=== PATIENT | female | born 1995 | race Two or more races ===

== ENCOUNTER 2020-04-17 05:36 | Inpatient (IN) | payer OTHER ==
[~2020-04-17] VITALS: Ht 165.1 cm; Wt 83.0 kg
[2020-04-17] VITALS (13 sets, daily range): BP systolic 108–135; BP diastolic 58–76
[2020-04-17] MEDS ORDERED: Vancomycin 1gm vial IVPB ONE (06:37)
[2020-04-17] MEDS ORDERED: Ropivacaine 5mg/ml Vial 30ml INJ ONE (06:38)
[2020-04-17] MEDS ORDERED: Gelfoam Size TOPIC ONE (06:38)
[2020-04-17] MEDS ORDERED: Bacitracin 50000 Units Vial ONE (06:38)
[2020-04-17] MEDS ORDERED: Thrombin 5000 units TOPIC ONE (06:38)
[2020-04-17] MEDS ORDERED: Lidocaine 1% MPF 10mg/ml 5ml ONE (06:40)
[2020-04-17] MEDS ORDERED: Sodium Chloride 10ml vial INJ ONE (06:40)
[2020-04-17] MEDS ORDERED: fentaNYL 100 mcg/2 mL IV ONE (06:42)
[2020-04-17] MEDS ORDERED: LORazepam Inj 2mg/ml 1ml IV PRN (06:45)
[2020-04-17] MEDS ORDERED: Hydromorphone 0.5mg/0.5ml inj IVP PRN (06:45)
[2020-04-17] MEDS ORDERED: Atropine Sulfate 0.4mg/ml inj IVP PRN (06:45)
[2020-04-17] MEDS ORDERED: Meperidine 25mg/1ml Inj (FOR RIGORS ONLY) IV PRN (06:45)
[2020-04-17] MEDS ORDERED: oxyCODONE HCL/Acetaminophen 5/325mg ORAL PRN (06:45)
[2020-04-17] MEDS ORDERED: LR 1000ml 1,000 ML IVLG SCH (06:45)
[2020-04-17] MEDS ORDERED: Metoclopramide 10mg/2ml Inj IVP PRN ×2 (06:45→07:15)
[2020-04-17] MEDS ORDERED: Midazolam 2mg/2ml Inj IVP PRN (06:45)
[2020-04-17] MEDS ORDERED: Labetalol 5mg/ml 20ml vial IV PRN (06:45)
[2020-04-17] MEDS ORDERED: Acetaminophen (Non formulary) 100 ML IV ONE (06:45)
[2020-04-17] MEDS ORDERED: HYDROcodone/Acetamin 7.5/325 tab ORAL PRN ×2 (06:45→07:15)
[2020-04-17] MEDS ORDERED: fentaNYL 100 mcg/2 mL IV PRN (06:45)
[2020-04-17] MEDS ORDERED: Ketorolac 30mg Inj IV PRN ×2 (06:45)
[2020-04-17] MEDS ORDERED: HYDROcodone/Acetamin 5/325 tab ORAL PRN ×2 (06:45→07:15)
[2020-04-17] MEDS ORDERED: DiphenhydrAMINE 50mg/ml Inj IVP PRN (06:45)
--- NOTE | 2020-04-17 06:45 | Anethesia Preoperative Eval ---
Anesthesia Pre-op PMH/ROS General Date of Evaluation: Apr 17, 2020 Time of Evaluation: 06:49 Anesthesiologist: Mindi ASA Score: ASA 1 Mallampati Score Class I : Soft palate, uvula, fauces, pillars visible Class II: Soft palate, uvula, fauces visible Class III: Soft palate, base of uvula visible Class IV: Only hard plate visible Mallampati Classification: Class I Surgeon: Elliott Diagnosis: Back Pain Surgical Procedure: L5-S1 Microdiscetomy Anesthesia History: none Family History: no anesthesia problems Allergies: Coded Allergies: No Known Allergies (Unverified , 04/17/20) Medications: see eMAR Patient NPO?: Yes Past Medical History Other: obesity - BMI 32 Anesthesia Pre-op Phys. Exam Physician Exam Last Vital Signs Date Time Temp Pulse Resp B/P (MAP) Pulse Ox O2 Delivery O2 Flow Rate FiO2 04/17/20 06:11 97.2 81 16 135/72 (93) 98 04/17/20 06:11 Room Air Constitutional: NAD Neurologic: CN 2-12 intact Cardiovascular: RRR Respiratory: CTA Gastrointestinal: S/NT/ND Airway Exam Mallampati Score: Class I MO: full ROM: full Teeth: intact Anesthesia Pre-op A/P Labs Urine Test Test 04/17/20 05:50 Urine HCG, Qualitative Negative (NEGATIVE) Risk Assessment & Plan Assessment: ASA 1 Plan: GA, SED, GlideScope Status Change Before Surgery: No Pre-Antibiotics Dru Grams Ancef IV Given Within 1 Hr of Incision: Yes Time Given: 07:16 Mitchel Obregon MD Apr 17, 2020 06:45
--- NOTE | 2020-04-17 06:52 | Immediate Post-Op Evaluation ---
Immediate Post-Op Evalulation Immediate Post-Op Evalulation Procedure: L5-S1 Microdiscetomy Date of Evaluation: Apr 17, 2020 Time of Evaluation: 09:15 IV Fluids: 900 LR Blood Products: 0 Estimated Blood Loss: 25 Urinary Output: 900 Blood Pressure Systolic: 108 Blood Pressure Diastolic: 58 Pulse Rate: 76 Respiratory Rate: 16 O2 Sat by Pulse Oximetry: 87 Temperature (Fahrenheit): 98.2 Pain Score (1-10): 2 Nausea: No Vomiting: No Complications 0 Patient Status: awake, reacts, patent, extubated, none Hydration Status: adequate Dru Grams Ancef IV Given Within 1 Hr of Incision: Yes Time Given: 07:16 Mitchel Obregon MD Apr 17, 2020 06:52
--- NOTE | 2020-04-17 06:53 | 48 Hour Post Anesthesia Eval ---
Post Anesthesia Evaluation Procedure: L5-S1 Microdiscetomy Date of Evaluation: Apr 17, 2020 Time of Evaluation: 11:34 Blood Pressure Systolic: 112 0: 62 Pulse Rate: 89 Respiratory Rate: 18 Temperature (Fahrenheit): 98.3 O2 Sat by Pulse Oximetry: 97 Airway: patent Nausea: No Vomiting: No Pain Intensity: 2 Hydration Status: adequate Cardiopulmonary Status: Stable Mental Status/LOC: patient returned to baseline Follow-up Care/Observations: 0 Post-Anesthesia Complications: 0 Follow-up care needed: ready to discharge Mitchel Obregon MD Apr 17, 2020 06:53
[2020-04-17] MEDS ORDERED: Rocuronium Bromide 50mg/5ml Inj IV ONE (06:56)
[2020-04-17] MEDS ORDERED: NS Irrig 1000ml ONE (07:00)
[2020-04-17] MEDS ORDERED: Sterile Water Irrig 1000ml IRRIG ONE (07:00)
[2020-04-17] MEDS ORDERED: Neostigmine 1mg/ml 10ml Inj ONE (07:00)
[2020-04-17] MEDS ORDERED: LR 1000ml ONE (07:00)
[2020-04-17] MEDS ORDERED: ceFAZolin sod 2 GM in NS 55 ML IVPB ONE (07:00)
[2020-04-17] MEDS ORDERED: propofoL 1,000mg/100ml IV ONE (07:00)
--- NOTE | 2020-04-17 07:10 | Pre-Procedure Note/Attestation ---
Pre-Procedure Note/Attestation Complete Prior to Procedure Planned Procedure: right Procedure Narrative: Right sided hemilaminotomy foraminotomy microdiscectomy Indications for Procedure Pre-Operative Diagnosis: Right sided L5S1 herniation Attestation I attest that I discussed the nature of the procedure; its benefits; risks and complications; and alternatives (and the risks and benefits of such alternatives), prior to the procedure, with the patient (or the patient's legal liability claims representative). I attest that, if there was a reasonable possibility of needing a blood transfusion, the patient (or the patient's legal liability claims representative) was given the [facility] standardized written summary, pursuant to the [place] Blood Safety Act ([place] Health and Safety Code # 1645, as amended). I attest that I re-evaluated the patient just prior to the surgery and that there has been no change in the patient's H&P, except as documented below: Ja Gallagher MD Apr 17, 2020 07:10
--- NOTE | 2020-04-17 07:11 | Brief Operative Note ---
Immediate Post Operative Note Operative Note Chief Complaint: back pain and radiculopathy Pre-op Diagnosis: Right sided L5S1 herniation Procedure: Right sided hemilaminotomy foraminotomy microdiscectomy Post-op Diagnosis: same as pre-op Findings: consistent w/pre-op dx studies Surgeon: Elliott Administrative Personal Assistant: Fredo Anesthesiologist: Mindi Anesthesia: general Specimen: none Complications: none Condition: stable Fluids: IVF Estimated Blood Loss: minimal Drains: none Implant(s) used?: No Ja Gallagher MD Apr 17, 2020 07:11
[2020-04-17] MEDS ORDERED: Naloxone 0.4mg/ml Inj IVP PRN (07:15)
[2020-04-17] MEDS ORDERED: Morphine Sulfate 4mg/ml Inj (IV USE ONLY) IV PRN ×2 (07:15)
[2020-04-17] MEDS ORDERED: Chloraseptic Spray 20mL Bottle ORAL PRN (07:15)
[2020-04-17] MEDS ORDERED: Milk of Magnesia 30ml Ud ORAL PRN (07:15)
[2020-04-17] MEDS ORDERED: HYDROmorphone 1mg/ml Carpuject IVP PRN (07:15)
[2020-04-17] MEDS ORDERED: Morphine Sulfate 2mg/ml Inj(IV/IM USE ONLY) IV PRN (07:15)
[2020-04-17] MEDS ORDERED: Glycopyrrolate 0.2mg/ml 1ml Vial ONE (08:32)
--- NOTE | 2020-04-17 10:35 | NUR ---
NURSE NOTES:Received patient from recovery,patient eyes closed,awake and talkative when name called.Dressing to the lower back clean and ice back applied to the area.Patient able to move lower extremities,feet warm to touch.Pulses Palpable.SCDs are on.IV fluids infusing.Bed alarm on,call light within reach.
--- NOTE | 2020-04-17 12:02 | Diagnostic Imaging Report ---
CLINICAL HISTORY: Reason For Exam: PAIN. Back pain. Intraoperative fluoroscopic imaging from spinal surgery COMPARISON: None FINDINGS: Fluoroscopy independent procedure performed for spinal surgery. 2.4 seconds of fluoroscopy time utilized by the ordering physician. Total cumulative dose is 0.78 mGy. Total of 3 spot images are obtained demonstrating surgical instruments projecting posterior to the lumbar sacral spine at the presumed level of L5-S1 (note that the possibility of transitional lumbosacral anatomy cannot be assessed given the limited imaging). IMPRESSION: FLUOROSCOPY GUIDED PROCEDURE.
[2020-04-17] MEDS: NS w/KCl 20mEq 1000ml 1,000 ML IV SCH ×2 (12:55→23:03)
--- NOTE | 2020-04-17 13:55 | NUR ---
PT EVALUATION NOTE Patient seen for initial evaluation and treatment initiated. Patient presents with pain and impaired functional mobility s/p lumbar spine surgery. Patient instructed in back precautions and in log roll technique for in/OOB. Patient required CGA/min assist for bed mobility and transfers without AD. Patient able to ambulate 80 ft with CGA, no AD. Patient will benefit from skilled inpatient PT intervention to increase strength and postural stability for improved level of functional mobility and to ensure compliance with back precautions. Stair training will be done as patient lives in a second floor apartment without elevator access. Anticipate discharge home once medically cleared by MD. Recommend raised toilet seat for home use. Addendum: 04/17/20 at 1431 by DOMINIK SPICER PT Amended: Links added.
[2020-04-17] MEDS: ceFAZolin sod 1 GM in D5W 55 ML IV SCH ×2 (15:23→23:03)
[2020-04-17] MEDS: HYDROcodone/Acetamin 7.5/325 tab ORAL PRN ×2 (15:32→23:04)
--- NOTE | 2020-04-17 18:00 | NUR ---
NURSE NOTES: Patient resting,tolerated diet.Surgical dressing to lower back remains clean,dry intact.IV fluids continue to infuse as ordered.Call light within reach.
[2020-04-17] MEDS: Docusate 100mg cap ORAL SCH (18:46)
--- NOTE | 2020-04-17 19:25 | NUR ---
NURSE HAND-OFF: Tomer HAWTHORNE Important Events on Shift:[ Post- op Patient Status: mo apparent distress] Diet: Regular Pending Orders: [NA] Pending Results/Labs:[NA] Pending MD notification:[NA] Latest Vital Signs: Temperature 99.0 , Pulse 85 , B/P 121 /67 , Respiratory Rate 18 , O2 SAT 98 , Nasal Cannula, O2 Flow Rate 3 . Vital Sign Comment: [Q4] Latest Burns Fall Score: 60 Fall Risk: High Risk Safety Measures: Call light , Bed Alarm , Side Rails Side Rails x1, Bed position . Fall Precautions: Report given to [].
--- NOTE | 2020-04-17 19:45 | NUR ---
NURSE NOTES: Received report from Anahy HAWTHORNE. Patient is awake, alert and oriented x4. On NC 2L, breathing is even and unlabored. Complains of back pain 7 out of 10. Will administer pain meds. Dressing on lower back intact and clean with no drainage noted. IV left hand intact and patent with no bleeding noted. IVF running as ordered. Bed low and locked. Call light within reach.
--- NOTE | 2020-04-17 22:29 | Operative Note - Dictated ---
DATE OF OPERATION: 04/17/2020 SURGEON: Ja Gallagher MD DUPLICATE MAKER SURGEON: Cedric Yoo MD ANESTHESIA: General endotracheal anesthesia. PREOPERATIVE DIAGNOSES: 1. Intractable back pain. 2. Intractable leg pain. 3. Worsening radiculopathy. 4. Weakness. 5. Herniated nucleus pulposus, L5-S1 herniation. 6. Neural foraminal stenosis, L5-S1. POSTOPERATIVE DIAGNOSES: 1. Intractable back pain. 2. Intractable leg pain. 3. Worsening radiculopathy. 4. Weakness. 5. Herniated nucleus pulposus, L5-S1 herniation. 6. Neural foraminal stenosis, L5-S1. PROCEDURES PERFORMED: 1. Right-sided L5-S1 microdiscectomy. 2. L5-S1 hemilaminotomy, foraminotomy and medial facetectomy. 3. L5 and S1 neural foraminotomy 4. Use of intraoperative microscope. 5. Supervision and interpretation of intraoperative fluoroscopy. 6. Supervision and interpretation of somatosensory-evoked potential and free running EMG monitoring. EBL: Less than 100 mL. COMPLICATIONS: None. INDICATIONS FOR THE PROCEDURE: The patient presents for intractable back pain and radiculopathy. The patient tried and failed a prolonged course of conservative management, including but not limited to chiropractic therapy, physical therapy, nonsteroidal anti-inflammatory drugs, medication, ice packs as well as epidural injection. Despite these therapies, the patient still developed recalcitrant pain and elected for definitive management in the form of right-sided L5-S1 microdiscectomy, L5-S1 hemilaminotomy, foraminotomy and medial facetectomy, L5-S1 neural foraminotomy through a transpedicular intraforaminal approach. CONSENT: We had a long discussion with the patient regarding definitive surgical treatment options. The patient's MRI demonstrated herniated nucleus pulposus, L5-S1 herniation, neural foraminal stenosis, L5-S1, and as a result, I felt the patient would benefit from the discectomy as well as neural foraminotomy at this level. We had a long discussion with the patient regarding the risks, alternatives, and benefits of surgery. Our description of the risks included a discussion in person as well as a signed consent which detailed all pertinent risks and the procedure itself. Briefly, our discussion included but was not limited to infection, bleeding, pseudarthrosis, spinal cord injury, neurovascular injury, dural tear, CSF leak, neuropathy, paralysis, permanent weakness/drop foot, paresthesias blindness, palsy and weakness. The patient understood there may be a need for revision surgery or additional procedures. Approach related complications including dysphonia, dysphagia, blindness, permanent vocal cord and neural injury, hematoma, swallowing and breathing difficulty. Medical complications including liver, kidney, shock, and cardiopulmonary failure. Anesthesia complications including , swelling. Damage to the musculature, larynx (voice injury or loss),esophagus (throat), trachea, blood vessels and muscles (muscular sprain) and lungs (pneumothorax) during this surgical procedure. Injury to deeper structures may be temporary or permanent. The patient understood these and elected to proceed. A written and verbal consent was given. We discussed the pros and cons of all the alternatives. We discussed the uncertainties associated with the decision. Afterwards I assessed the patients understanding and explored their preferences. All questions were answered and no guarantees were given. Medical clearance was obtained prior to surgery INTRAOPERATIVE FINDINGS: At L5-S1: I noticed the disc to be more collapsed and apparent on the MRI. There was a tear noted along the lateral margin into the foramina of the posterior longitudinal ligament. This was probed with a Microsect 1B curette. The torn edges appeared fresh knots and appeared to be chronic. These edges were probed with Microsect 1B. The tear was approximately 10 degrees inline with the fibers of the posterior longitudinal ligament cephalad to caudad 10 degrees. The edges of the tear were probed freeing the underlying nucleus pulposus. This was resected with a combination of pea pods, arthroscopic pituitaries, and a Mercedes pituitary until resection of all free residual fragment was performed. Afterwards, the disc space was copiously irrigated and all residual fragment was removed as well. There was a foraminal stenosis. As such, a foraminotomy of S1 and the L5 was performed afterwards. DESCRIPTION OF PROCEDURE: Under the benefit of general endotracheal anesthesia and with the assistance of the entire operative team, the patient was moved from the rney onto the operative table in the prone position on a Emmanuel frame. The head was secured and positioned appropriately. Bilateral arms were secured with Gel pads and foam and all bony prominences were padded. The bilateral lower extremity SCD and DEBBIE hose were placed for DVT prophylaxis. A surgical timeout was called which corroborated our planned procedure. Preoperative Antibiotics were administered within 30 minutes of the incision for prophylaxis. Decadron was given for preoperative steroids. Using lateral radiography, the operative levels were delineated. An incision was marked based on our interpretation of lateral radiography and afterwards the body was prepped and draped in the usual sterile manner. The family was notified that we were ready to commence surgery and were called in the waiting room hourly for updates An incision was based on our lateral fluoroscopic image to center the incision at the L5-S1 interspace. The wound was prepped and draped in the usual sterile fashion. Using a scalpel a midline incision was taken down through the skin and subcutaneous tissues until the overlying hemilamina of L5-S1 were visualized. Next, using meticulous hemostasis, hemilamotomies were dissected and retractors were placed. Using a [employer] dental, we confirmed placement at the L5-S1 interspace. We next turned our attention to our decompression. A standard hemilaminotomy foraminotomy medial facetectomy was performed at each level in standard fashion using a Midas-Juan type AM8 drill bit, straight and angled curettage, and Kerrison 4 rongeurs until the lateral thecal sac margin and traversing nerve root was visualized. All remainders of the ligamentum flavum and lateral bony margins were resected in total with angled curettage and Kerrison 4 rongeurs until the lateral thecal sac margin and traversing nerve root was visualized and decompressed. We next turned our attention toward our L5-S1 microdiscectomy on the right side. I noticed the disc to be more collapsed and apparent on the MRI. There was a tear noted along the lateral margin into the foramina of the posterior longitudinal ligament. This was probed with a Microsect 1B curette. The torn edges appeared fresh knots and appeared to be chronic. These edges were probed with Microsect 1B. The tear was approximately 10 degrees inline with the fibers of the posterior longitudinal ligament cephalad to caudad 10 degrees. The edges of the tear were probed freeing the underlying nucleus pulposus. This was resected with a combination of pea pods, arthroscopic pituitaries, and a Mercedes pituitary until resection of all free residual fragment was performed. Afterwards, the disc space was copiously irrigated and all residual fragment was removed as well. There was a foraminal stenosis. As such, a foraminotomy of S1 and the L5 was performed afterwards. Having been satisfied with our decompression after our discectomy of all neural elements, we next turned our attention to our neural foraminoplasty/foraminotomy. This was performed through the use of kerrison rongeurs and pituitaries which allowed for re-creation of the neural foraminal arch at L5-S1. Afterwards, hemostasis was obtained with 60 mL of antibiotic-impregnated saline followed by FloSeal and Gelfoam. After sponge and needle count were found to be correct, we next turned our attention to closure. Closure consisted of 1-0 Vicryl in standard interrupted fashion. Zosyn was placed deep to the fascia and superficial to the fascia for antibiotic prophylaxis. Skin closure was performed with 2-0 Vicryl in interrupted fashion followed by a running Monocryl for the skin. Final dressings consisted of Dermabond for the superficial skin, Telfa and Tegaderm. The patient tolerated the procedure well. The patient was extubated after the conclusion of surgery without incident. We discussed the findings of the surgery with the family upon completion of the case. At this point the patient will be transferred to the spine floor for further observation. Ja Gallagher M.D. DR: LIAN JOB#: [id number] CC: SUELLEN
[2020-04-18] VITALS: BP 106/53
[2020-04-18 04:00] VITALS: BP 111/48
[2020-04-18] MEDS: ceFAZolin sod 1 GM in D5W 55 ML IV SCH (06:00)
--- NOTE | 2020-04-18 07:53 | NUR ---
NURSE HAND-OFF: Important Events on Shift: Pain management Patient Status: Stable Diet: Regular Pending Orders: [] Pending Results/Labs:[] Pending MD notification:[] Latest Vital Signs: Temperature 97.9 , Pulse 99 , B/P 111 /48 , Respiratory Rate 18 , O2 SAT 97 , Nasal Cannula, O2 Flow Rate 3 . Vital Sign Comment: VS stable Latest Burns Fall Score: 60 Fall Risk: High Risk Safety Measures: Call light Within Reach, Bed Alarm , Side Rails Side Rails x2, Bed position Low and Locked. Fall Precautions: Patient Fall Education Report given to Anahy HAWTHORNE.
[2020-04-18 08:00] VITALS: BP 104/54
--- NOTE | 2020-04-18 08:00 | NUR ---
NURSE NOTES: patient awake and alert and oriented,respirations unlabored.: lower back dressing clean and in place.patient able to move lower extremities.patient sitting up in bed and eating breakfast.call light within reach.
--- NOTE | 2020-04-18 08:52 | General Progress Note ---
Subjective Allergies: Coded Allergies: No Known Allergies (Unverified , 04/17/20) Subjective post op care noted Objective Last 24 Hour Vital Signs Date Time Temp Pulse Resp B/P (MAP) Pulse Ox O2 Delivery O2 Flow Rate FiO2 04/18/20 04:00 97.9 99 18 111/48 (69) 97 04/18/20 00:00 98.1 78 18 106/53 (70) 96 04/17/20 21:00 Room Air 04/17/20 20:00 98.4 76 18 124/67 (86) 99 04/17/20 16:00 99.0 85 18 121/67 (85) 98 04/17/20 11:45 98.7 92 18 119/68 (85) 98 04/17/20 10:35 98.4 84 18 117/68 (84) 97 04/17/20 10:15 97.5 80 20 122/74 100 Nasal Cannula 3 04/17/20 10:00 81 19 130/75 100 Nasal Cannula 3 04/17/20 09:45 83 17 127/76 100 Nasal Cannula 3 04/17/20 09:30 86 20 132/74 100 Simple Mask 6 04/17/20 09:20 82 21 127/70 100 Simple Mask 6 04/17/20 09:10 77 22 124/73 93 Simple Mask 6 04/17/20 09:05 97 16 113/61 92 Simple Mask 6 04/17/20 09:01 89 18 97 04/17/20 09:00 97.1 96 18 108/58 87 Simple Mask 6 04/17/20 09:00 76 16 87 Intake and Output 04/17/20 04/18/20 19:00 07:00 Intake Total 2305 ml 1210 ml Output Total 25 ml Balance 2280 ml 1210 ml Intake Oral 600 ml IV Total 1705 ml 1210 ml Output Estimated Blood Loss 25 ml # Voids 1 Height (Feet): 5 Height (Inches): 5.00 Weight (Pounds): 183 Objective WDWN NAD clear breath sounds bilaterally without rhonchi or wheeze [id number] without MRG NABS nontender no HSM no CCE nonfocal Assessment/Plan Assessment/Plan: back pain and radiculopathy Right sided L5S1 herniation Right sided hemilaminotomy foraminotomy microdiscectomy PLAN 1. incentive spirometry 2. SCD 3. PT evaluation and therapy 4. Hydration 5. Pain management 6. discharge once stable with outpatient follow up Kolby Buck MD Apr 18, 2020 08:52
[2020-04-18] MEDS: Docusate 100mg cap ORAL SCH (09:27)
[2020-04-18 12:00] VITALS: BP 118/63
--- NOTE | 2020-04-18 13:15 | NUR ---
NURSE NOTES: Patient discharged patient was cleared by Physical Therapist.IV removed and ID hospital band removed.patient has her personal belongings.cell phone.Prescription given and CD given back to patient Patient was supplied with raise seat for toilet.Patient accompany down to private vehicle,patient Mother will take her home.
--- NOTE | 2020-04-21 09:57 | Discharge Summary ---
Discharge Summary Discharge Summary _ Date of admission: 04/17/2020 Date of discharge: 04/18/[address] Gallagher History of Present Illness and Brief Hospital Course Ms. Garcia is a 25-year-old female who presented to [facility] for a scheduled surgery. She had intractable back pain, leg pain, worsening radicul opathy and weakness due to herniated nucleus pulposus and neural foraminal stenosis at L5-S1. Patient tried and failed a prolonged course of conservative management. Patient elected for definitive management. She underwent right- sided L5-S1 microdiscectomy, hemilaminotomy, foraminotomy, medial facetectomy, and neural foraminotomy. Patient tolerated the procedure well and was tr ansferred to the spine floor for further observation. Patient was cleared by a physical therapist for discharge. Patient was medically stable and was discharged home on 04/18/2020. Consultants: None Discharge Condition Stable Discharge Activity No heavy lifting or bending Discharge Diet Regular Final diagnoses Intractable back pain. Intractable leg pain. Worsening radiculopathy. Weakness. Herniated nucleus pulposus, L5-S1 herniation. Neural foraminal stenosis, L5-S1. s/p right-sided L5-S1 microdiscectomy. s/p L5-S1 hemilaminotomy, foraminotomy and medial facetectomy. s/p L5 and S1 neural foraminotomy I have been assigned to dictate discharge summary for this account. I was not involved in the patient's management Angel Myles Apr 21, 2020 09:57
== END 2020-04-18 13:20 | disposition home or self-care (01) | DRG 520 ==
LOC: SDSOVERFLO 05:36 → 3E 10:40 → 4E 11:25
DX: M51.17 Intervertebral disc disorders with radiculopathy, lumbosacral region (principal); M48.07 Spinal stenosis, lumbosacral region; W20.8XXS Other cause of strike by thrown, projected or falling object, sequela; F41.8 Other specified anxiety disorders
CPT/HCPCS: 36415; 72020; 76000; 81025; 86850; 86900; 86901; 87081; J2405; J2710